=== PATIENT | female | born 1995 | race Caucasian/White ===

== ENCOUNTER 2021-09-19 10:35 | Outpatient (CLI) | payer OTHER, SELFPAY ==
[2021-09-19 11:24] LABS: Add Urine Microscopic? YES; Appearance Urine Cloudy (Clear); Bacteria Urine Trace /hpf; Bilirubin Urine Negative (Negative); Blood Urine Negative (Negative); Color Urine Yellow (Yellow); Glucose Urine UA Negative (Negative); Ketones Urine Negative (Negative); Leukocyte Esterase Ur Negative LEU/UL (NEGATIVE); Mucus Urine Rare /lpf; Nitrate Urine Negative (Negative); Protein Urine 1+ mg/dL (Negative); Specific Grav Ur 1.026 (1.001-1.035); Squamous Epithelial Cell Urine Occasional /hpf (Few); Urobilinogen Urine Negative mg/dL (<2.0); WBC Urine 0-3 /hpf (0-3)
[2021-09-19 11:38] LABS: Alanine Aminotransferase 14 U/L (4-35); Albumin Level 3.9 g/dL (3.5-5.1); Alkaline Phosphatase 96 U/L (38-126); Anion Gap 6 mmol/L (8-16); Aspartate Amino Transferase 19 U/L (14-36); Bilirubin,Total 0.5 mg/dL (0.2-1.3); Blood Urea Nitrogen 13 mg/dL (7-17); Calcium 9.7 mg/dL (8.4-10.2); Carbon Dioxide 26 mmol/L (22-30); Chloride 104 mmol/L (98-107); Cholesterol 291 mg/dL (0-200); Estimated Glomerular Filt Rate > 60; Glucose 86 mg/dL (65-110); HDL Direct 108 mg/dL; Potassium 4.5 mmol/L (3.4-5.0); Sodium 136 mmol/L (137-145); Triglycerides 202 mg/dL (<150)
[2021-09-19 11:49] LABS: LDL Cholesterol Direct 139 mg/dL
== END 2021-09-19 10:36 | disposition home or self-care (01) ==
LOC: ANHLAB 10:37
PROVIDERS: PCP Family Medicine; Visit Provider Nurse Practitioner Family
DX: E66.9 Obesity, unspecified (principal); I10 Essential (primary) hypertension; E78.2 Mixed hyperlipidemia
CPT/HCPCS: 36415; 80053; 80061; 81001; 84443

== ENCOUNTER 2022-05-21 10:42 | Outpatient (CLI) | payer OTHER, SELFPAY ==
[2022-05-21 11:01] LABS: Basophils Absolute Auto 0.1 K/mm3 (0.0-0.1); Basophils Percent Auto 0.5 % (0.2-1.2); Eosinophils Absolute Auto 0.3 K/mm3 (0-0.3); Eosinophils Percent Auto 2.4 % (0-4.4); Hematocrit 41.1 % (37.0-47.0); Hemoglobin 13.6 g/dL (12.0-15.0); Immature Granulocyte Absolute 0.05 K/mm3 (0.00-0.031); Immature Granulocyte Percent A 0.5 % (0-0.5); Lymphocytes Absolute Auto 2.21 K/mm3 (0.9-3.2); Lymphocytes Percent Auto 21.4 % (18.3-44.2); Mean Corpuscular HGB Conc 33.1 g/dl (32-36); Mean Corpuscular Hemoglobin 28.4 pg (26-34); Mean Corpuscular Volume 85.8 fl (80-100); Mean Platelet Volume 9.1 fl (7.4-10.4); Monocytes Absolute Auto 0.7 K/mm3 (0.1-0.6); Monocytes Percent Auto 6.6 % (2.6-8.5); Neutrophils Absolute Auto 7.1 K/mm3 (1.3-6.7); Neutrophils Percent Auto 68.6 % (45.5-73.1); Platelet Count Result 293 k/mm3 (150-375); Red Blood Count 4.79 M/mm3 (4.2-5.4); Red Cell Distribution Width 12.9 % (11.5-14.5); White Blood Count 10.3 K/mm3 (4.5-10.0)
[2022-05-21 11:13] LABS: Alanine Aminotransferase 13 U/L (6-35); Albumin Level 4.2 g/dL (3.5-5.1); Alkaline Phosphatase 122 U/L (38-126); Anion Gap 5 mmol/L (8-16); Aspartate Amino Transferase 17 U/L (14-36); Bilirubin,Total 0.4 mg/dL (0.2-1.3); Blood Urea Nitrogen 10 mg/dL (7-17); Calcium 9.4 mg/dL (8.4-10.2); Carbon Dioxide 26 mmol/L (22-30); Chloride 105 mmol/L (98-107); Estimated Glomerular Filt Rate > 60; Glucose 92 mg/dL (65-110); Sodium 136 mmol/L (137-145)
[2022-05-21 11:43] LABS: Thyroid Stimulating Hormone 0.932 uIU/mL (0.465-4.680)
[2022-05-21 12:23] LABS: Vitamin D 25 Hydroxy 31.6 ng/mL
[2022-05-21 12:26] LABS: Folic Acid 10.7 ng/mL (2.76->20)
== END 2022-05-21 10:43 | disposition home or self-care (01) ==
PROVIDERS: PCP Family Medicine; Visit Provider Physician Assistant
DX: R53.83 Other fatigue (principal); I10 Essential (primary) hypertension
CPT/HCPCS: 36415; 80053; 82306; 82607; 82746; 84443; 85025

== ENCOUNTER 2022-08-23 13:24 | Outpatient (CLI) | payer OTHER, SELFPAY ==
[2022-08-23 13:42] LABS: Basophils Percent Auto 0.3 % (0.2-1.2); Eosinophils Absolute Auto 0.2 K/mm3 (0-0.3); Eosinophils Percent Auto 2.5 % (0-4.4); Hematocrit 38.9 % (37.0-47.0); Immature Granulocyte Absolute 0.06 K/mm3 (0.00-0.031); Immature Granulocyte Percent A 0.6 % (0-0.5); Lymphocytes Percent Auto 18.4 % (18.3-44.2); Mean Corpuscular HGB Conc 33.4 g/dl (32-36); Mean Corpuscular Hemoglobin 27.8 pg (26-34); Mean Corpuscular Volume 83.3 fl (80-100); Mean Platelet Volume 9.3 fl (7.4-10.4); Monocytes Absolute Auto 1.2 K/mm3 (0.1-0.6); Monocytes Percent Auto 12.5 % (2.6-8.5); Neutrophils Absolute Auto 6.1 K/mm3 (1.3-6.7); Neutrophils Percent Auto 65.7 % (45.5-73.1); Platelet Count Result 242 k/mm3 (150-375); Red Blood Count 4.67 M/mm3 (4.2-5.4); Red Cell Distribution Width 12.2 % (11.5-14.5); White Blood Count 9.3 K/mm3 (4.5-10.0)
== END 2022-08-23 13:25 | disposition home or self-care (01) ==
LOC: ANHLAB 13:25
PROVIDERS: PCP Family Medicine; Visit Provider Physician Assistant
DX: D72.829 Elevated white blood cell count, unspecified (principal)
CPT/HCPCS: 36415; 85025

== ENCOUNTER 2022-09-24 18:03 | Emergency (ER) | payer OTHER, SELFPAY ==
--- NOTE | ~2022-09-24 | XR_ITS ---
EXAM: XR foot RT min 3V DATE: 09/24/2022 18:31 HISTORY: STEPPED ON NAIL, PAIN AND PUNCTURE RT FOOT . COMPARISON: None available. FINDINGS: Normal mineralization. No fracture or dislocation. No lytic or blastic lesion. Joint space s are maintained. No erosion or periosteal change. Linear lucent soft tissue defect over the ball of the foot seen only in the lateral view may represent the puncture injury. IMPRESSION: No acute osseous finding in the right foot. No radiopaque foreign body. Reviewed, dictated and finalized at location K. ANALYST IMPRESSION: No acute osseous finding in the right foot. No radiopaque foreign b christian.
[2022-09-24 18:12] VITALS: BP 138/71; PULSE 88; RESP 16; TEMP 36.6; O2SAT 99
--- NOTE | 2022-09-24 19:16 | ED.GENADULT ---
HPI - General Adult General Chief complaint: Extremity Injury, Lower Stated complaint: stepped on nail right foot Source: patient Mode of arrival: ambulatory Limitations: no limitations History of Present Illness HPI narrative: Patient presents for evaluation of puncture wound to the right foot. She indicates she stepped on a nail yesterday. She was wearing rubber soled shoes at the time. The puncture went through the sole and pieced the skin of the plantar aspect of her foot. She has [id number] pain without numerical rating her descriptive quality in the right foot since that time. Pain is more noticeable with weight-bearing. She has taken Tylenol which seems to help. She is not diabetic. Date of last tetanus unknown. She does not smoke. No purulence with the affected area. No fever, chills, nausea, vomiting. No additional complaints or concerns. Related Data Home Medications Medication Instructions Recorded Confirmed glycopyrrolate 2 mg tablet 2 mg PO BID 09/24/22 09/24/22 metoprolol succinate 50 mg 50 mg PO DAILY 09/24/22 09/24/22 tablet,extended release 24 hr Allergies Allergy/AdvReac Type Severity Reaction Status Date / Time nickel Allergy Mild raw and Verified 09/24/22 18:38 rash ibuprofen Allergy Unknown Abdominal Verified 09/24/22 18:38 Pain sulfamethizole Allergy Unknown Rash Verified 09/24/22 18:38 trimethoprim Allergy Unknown Rash Verified 09/24/22 18:38 Review of Systems Review of Systems: CONSTITUTIONAL: Denies fever, chills, or sweats. EYES: Denies visual changes, redness, or discharge. ENT: Denies rhinorrhea, congestion, sore throat, or otalgia. CARDIOVASCULAR: Denies chest pain, palpitations, or edema. RESPIRATORY: Denies cough or dyspnea. GASTROINTESTINAL: Denies abdominal pain, nausea, vomiting, or diarrhea. GENITOURINARY: Denies dysuria or hematuria. SKIN: Reports puncture wound to the right foot MUSCULOSKELETAL: Reports right foot pain. Denies back pain or joint pain NEUROLOGIC: Denies headache, numbness, dizziness, or weakness. PSYCHIATRIC: Denies anxiety or depression. [facility] Past Medical History Medical History (Updated 09/24/22 @ 19:18 by Doyle Carmichael, [employer], [place]) Essential (primary) hypertension Other seasonal allergic rhinitis Surgical History Surgical History No pertinent past surgical history Family History Family History Mother Patient's mother is in good health Father Patient's father is in good health Social History Social History (Updated 09/24/22 @ 19:18 by VIJAYA BurrP, ) Smoking status: Former smoker Alcohol intake: never Alcohol use details: patient rarely drinks and had last drink 2 months ago Substance use: never Substance use type: does not use Additional living arrangements comments: lives with boyfriend Gender identity (if verbalized by the patient): Female Sexual Orientation (if Verbalized by the Patient): Straight or Heterosexual Exam Narrative: GENERAL: Well-appearing, well-nourished, and in no acute distress. HEAD: Normocephalic, atraumatic. EYES: PERRLA and EOMI. ENT: Nares clear, no rhinorrhea or epistaxis. Mucous membranes moist. Oropharynx without tonsillar hypertrophy exudate or other lesions. Bilateral TMs pearly britton nonbulging NECK: Supple. No adenopathy or masses. No carotid bruits or JVD CHEST: Clear to auscultation. No respiratory distress. No wheezes rales or rhonchi HEART: Regular rate and rhythm. No murmur heard. Normal peripheral pulses. ABDOMEN: Soft, nontender, nondistended, normal active bowel sounds. EXTREMITIES: Normal range of motion. No edema. Tenderness over the puncture wound to the right foot r SKIN: There is a puncture wound to the ball of the posterior aspect of the right foot. NEURO: No focal deficits. Alert and oriented x3. PSYCH: Normal mood a
[2022-09-24] MEDS: TETANUS,DIPHTHERIA,AC PERTUSSIS ADULT (0.5 ML) BOOSTRIX IM (19:25)
== END 2022-09-24 19:40 | disposition home or self-care (01) ==
PROVIDERS: Emergency Provider Nurse Practitioner; PCP Family Medicine
DX: S91.331A Puncture wound without foreign body, right foot, initial encounter (principal); Z23 Encounter for immunization; W45.0XXA Nail entering through skin, initial encounter; I10 Essential (primary) hypertension; Z87.891 Personal history of nicotine dependence
CPT/HCPCS: 73630; 90471; 90715; 99213; G0463

== ENCOUNTER 2022-12-25 16:52 | Emergency (ER) | payer OTHER, SELFPAY ==
--- NOTE | 2022-12-25 16:56 | ED.EYEPROB ---
HPI - Eye Problem General Chief complaint: Eye Problems Stated complaint: Eye Problem Time Seen by Provider: 12/25/22 17:04 Source: patient and RN notes reviewed Mode of arrival: ambulatory Limitations: no limitations History of Present Illness HPI Narrative: 27-year-old female presents with concern for left eye discomfort, it drainage. Reports she woke up with a crusted shut this morning. Reports she noticed a bump on her upper eyelid, she had a stye in her right eye 2 weeks ago that she has been using drops she had previously prescribed for her stye relief. She reports the pain felt like a started suddenly yesterday. She reports she has very dry eyes. She does not were contact lenses. She denies vision changes MD chief complaint: eye pain Related Data Home Medications Medication Instructions Recorded Confirmed glycopyrrolate 2 mg tablet 2 mg PO BID 09/24/22 09/24/22 metoprolol succinate 50 mg 50 mg PO DAILY 09/24/22 09/24/22 tablet,extended release 24 hr Allergies Allergy/AdvReac Type Severity Reaction Status Date / Time nickel Allergy Mild raw and Verified 12/25/22 17:04 rash ibuprofen Allergy Unknown Abdominal Verified 12/25/22 17:04 Pain sulfamethizole Allergy Unknown Rash Verified 12/25/22 17:04 trimethoprim Allergy Unknown Rash Verified 12/25/22 17:04 Review of Systems Review of Systems: CONSTITUTIONAL: Denies malaise, chills, sweats, or fever. EYES: Denies visual changes. Reports left eye redness, irritation, discharge. ENT: Denies rhinorrhea, congestion, sinus pain, otalgia or sore throat. SKIN: Denies rash or itching. NEUROLOGIC: Denies numbness, weakness, or headache. PSYCHIATRIC: Denies anxiety or depression. All systems reviewed & are unremarkable except as noted in HPI and below PMFSH Past Medical History Medical History (Updated 12/25/22 @ 17:23 by Waleska Carl NP) Essential (primary) hypertension Other seasonal allergic rhinitis Surgical History Surgical History No pertinent past surgical history Family History Family History Mother Patient's mother is in good health Father Patient's father is in good health Social History Social History (Updated 09/24/22 @ 19:18 by Doyle Carmichael, [facility], ) Smoking status: Former smoker Alcohol intake: never Alcohol use details: patient rarely drinks and had last drink 2 months ago Substance use: never Substance use type: does not use Living arrangements: with family Additional living arrangements comments: lives with boyfriend Occupation/Education: occupation Gender identity (if verbalized by the patient): Female Sexual Orientation (if Verbalized by the Patient): Straight or Heterosexual Comments At time of signature, agree with nursing past medical, surgical, social and family history. There is no relevant family history pertinent to the presenting complaint Exam Narrative: GENERAL: Well-appearing, well-nourished, and in no acute distress. HEAD: Normocephalic, atraumatic. EYES: PERRLA, range sclera clear, and EOMI. No nystagmus. Left mildly conjunctivae injected with yellow crusty drainage noted. Upper and lower eyelid unremarkable, no periorbital edema noted ENT: Nares clear, turbinates pink, no rhinorrhea or epistaxis. Mucous membranes moist. TM pearly britton with sharp light reflex bilaterally; no tragal tenderness. NECK: Supple. CHEST: No respiratory distress. Speaks in full sentences. HEART: Regular rate and rhythm. SKIN: Warm, dry, no visible rash. NEURO: Alert and oriented x3. PSYCH: Normal mood and affect Course Course Emergency Course: Patient is aware of diagnosis, understands and agrees to treatment plan. Anticipatory guidance given. Patient agrees to follow-up as directed and is aware of reasons to seek care at the emergency department. Portions of this record may
[2022-12-25 16:57] VITALS: BP 152/93; PULSE 90; RESP 16; TEMP 36.8; O2SAT 100
== END 2022-12-25 17:23 | disposition home or self-care (01) ==
PROVIDERS: Emergency Provider Nurse Practitioner; PCP Family Medicine
DX: H10.9 Unspecified conjunctivitis (principal); I10 Essential (primary) hypertension; Z87.891 Personal history of nicotine dependence
CPT/HCPCS: 99212; A9270; G0463

== ENCOUNTER 2023-01-14 16:52 | Emergency (ER) | payer OTHER, SELFPAY ==
[2023-01-14 17:05] VITALS: BP 139/87; PULSE 102; RESP 16; TEMP 37; O2SAT 99
--- NOTE | 2023-01-14 18:00 | ED.ABDPAIN ---
HPI - Abdominal Pain General Chief Complaint: Urogenital-Female Stated Complaint: Urinary Problem Source: patient and RN notes reviewed History of Present Illness HPI narrative: 27-year-old female presents to urgent care with complaints genital pain that radiates around her tailbone. Patient states this has been going for the last 24 hours. Patient reports polyuria but denies any burning with urination. Patient denies any lower back pain with exception tailbone pain. Denies any fevers, chills, vaginal discharge, concern for STI, abdominal pain, or dyspareunia. Patient took 2 of her old prescription Bactrim pills. Some parts of this dictation were generated by voice recognition software and may contain typographical and/or grammatical inaccuracies. Related Data Home Medications Medication Instructions Recorded Confirmed glycopyrrolate 2 mg tablet 2 mg PO BID 09/24/22 12/25/22 metoprolol succinate 50 mg 50 mg PO DAILY 09/24/22 12/25/22 tablet,extended release 24 hr Allergies Allergy/AdvReac Type Severity Reaction Status Date / Time nickel Allergy Mild raw and Verified 12/25/22 17:04 rash ibuprofen Allergy Unknown Abdominal Verified 12/25/22 17:04 Pain sulfamethizole Allergy Unknown Rash Verified 12/25/22 17:04 trimethoprim Allergy Unknown Rash Verified 12/25/22 17:04 Review of Systems Review of Systems: CONSTITUTIONAL: Denies fever, chills, or sweats. EYES: Denies visual changes, redness, or discharge. ENT: Denies otalgia and sore throat CARDIOVASCULAR: Denies chest pain, palpitations, or edema. RESPIRATORY: Denies cough or dyspnea. GASTROINTESTINAL: Denies abdominal pain, nausea, vomiting, or diarrhea. GENITOURINARY:genital pain that radiates to tailbone SKIN: Denies rash or itching. MUSCULOSKELETAL: Denies back pain, joint pain, or myalgia. NEUROLOGIC: Denies headache, numbness, or weakness. [facility] Past Medical History Medical History (Updated 01/14/23 @ 18:04 by Dana Cazares APRN) Essential (primary) hypertension Other seasonal allergic rhinitis Surgical History Surgical History No pertinent past surgical history Family History Family History Mother Patient's mother is in good health Father Patient's father is in good health Social History Social History (Updated 09/24/22 @ 19:18 by Doyle Carmichael [facility], ) Smoking status: Former smoker Alcohol intake: never Alcohol use details: patient rarely drinks and had last drink 2 months ago Substance use: never Substance use type: does not use Living arrangements: with family Additional living arrangements comments: lives with boyfriend Occupation/Education: occupation Gender identity (if verbalized by the patient): Female Sexual Orientation (if Verbalized by the Patient): Straight or Heterosexual Comments At the time of my signature, I reviewed and agree with the nursing past medical, surgical, social, and family history. There is no relevant family history pertinent to the patient complaint. Exam Narrative: GENERAL: This is a well-nourished, well-developed patient, in no apparent distress. HEAD: normocephalic, atraumatic. EYES: PERRL. Sclera clear/white. Vision is grossly intact. EARS: External ears normal, auditory canals clear and without drainage, TMs normal without perforation. Hearing grossly intact. NOSE: External nose normal with no obvious nasal discharge, nares without redness, no rhinorrhea. THROAT: Mucous membranes moist, posterior pharynx clear. NECK: Neck supple, non-tender without lymphadenopathy, masses or thyromegaly. CARDIOVASCULAR: Regular rate and rhythm without murmurs, gallops, or rubs. RESPIRATORY: Clear to auscultation. Breath sounds equal bilaterally. No wheezes, rales, or rhonchi. GASTROINTESTINAL: Abdomen soft, non-tender, nondistended. Bowel sounds are active. No hep
== END 2023-01-14 18:32 | disposition home or self-care (01) ==
PROVIDERS: Emergency Provider Nurse Practitioner Family; PCP Family Medicine
DX: N39.0 Urinary tract infection, site not specified (principal); I10 Essential (primary) hypertension; Z87.891 Personal history of nicotine dependence
CPT/HCPCS: 81003; 81025; 87086; 99213; G0463